=== PATIENT | female | born 1955 | race Caucasian/White ===

== ENCOUNTER 2017-07-08 18:35 | Emergency (ER) | payer BC, OTHER ==
[~2017-07-08] VITALS: Ht 157.5 cm; Wt 68.0 kg
[2017-07-08] MEDS ORDERED: SODIUM CHLORIDE 0.9% 1,000 ML IVB ONE (18:48)
[2017-07-08 19:30] LABS: Basophils # (auto) 0.1 uL; Basophils % (auto) 0.8 % (0.0-2.0); Eosinophils # (auto) 0.2 uL; Eosinophils % (auto) 1.9 % (0.0-7.0); Hematocrit 41.3 % (36.0-46.0); Hemoglobin 13.6 g/dL (12.2-16.2); Lymphocytes # (auto) 2.9 uL; Lymphocytes % (auto) 35.4 % (10.0-50.0); Mean Corpuscular Hemoglobin 29.8 pg (28.0-32.0); Mean Corpuscular Hgb Conc. 32.9 g/dL (32.0-36.0); Mean Corpuscular Volume 90.6 fL (80.0-100.0); Monocytes # (auto) 0.7 uL; Monocytes % (auto) 8.5 % (0.0-12.0); Neutrophils # (auto) 4.3 uL; Neutrophils % (auto) 53.4 % (37.0-80.0); Nucleated Red Blood Cells % 0.1 %; Platelet Count (auto) 266 10^3/uL (140-450); Red Blood Cells 4.56 10^6/uL (4.0-5.20); Red Cell Distribution Width 13.9 % (11.8-14.3); White Blood Cell 8.1 10^3/uL (4.4-10.8)
[2017-07-08 19:44] LABS: Acetaminophen 5.9 ug/mL (10-30); Salicylate 2.7 mg/dL (2.8-20.0)
[2017-07-08 19:45] LABS: Calcium 8.3 mg/dL (8.5-10.1); Potassium 3.1 mmol/L (3.5-5.1)
[2017-07-08 19:49] LABS: Albumin 3.9 g/dL (3.4-5.0); BUN/Creatinine Ratio 17.9; Magnesium 2.2 mg/dL (1.6-2.6)
[2017-07-08 19:51] LABS: Bilirubin, Total 0.6 mg/dL (0.2-1.0); Total Protein 7.5 g/dL (6.4-8.2)
[2017-07-08] MEDS ORDERED: SODIUM CHLORIDE 0.9% 1,000 ML IV ONE (20:45)
[2017-07-08 21:44] LABS: Acetaminophen 7.2 ug/mL (10-30); Salicylate 2.5 mg/dL (2.8-20.0)
[2017-07-08] MEDS ORDERED: POTASSIUM CHL 20 Meq TABLET PO ONE (23:00)
[2017-07-08] MEDS ORDERED: THIAMINE INJ 100 MG, MULTIPLE VITAMIN 10 ML, FOLIC ACID 1 MG, MAGNESIUM SULF SDV 50% 8 ... IV SCH ×5 (23:00)
[2017-07-08 23:03] LABS: Acetaminophen 2.8 ug/mL (10-30); Salicylate 2.6 mg/dL (2.8-20.0)
[2017-07-09] MEDS ORDERED: TRAZ100T2 PO (05:48)
[2017-07-09] MEDS ORDERED: IBUP800T24 PO (05:48)
[2017-07-09] MEDS ORDERED: BENA10TA9 PO (05:48)
[2017-07-09] MEDS ORDERED: OME20GT PO (05:48)
[2017-07-09] MEDS ORDERED: CHOL20007 PO (05:48)
[2017-07-09] MEDS ORDERED: ESCI20TA51 PO (05:48)
[2017-07-09] MEDS ORDERED: THIAMINE INJ 100 MG, MULTIPLE VITAMIN 10 ML, FOLIC ACID 1 MG, MAGNESIUM SULF SDV 50% 8 ... IV SCH ×5 (12:00)
[2017-07-09] MEDS: BENAZEPRIL HCL 10 MG TAB PO SCH (22:05)
[2017-07-10] MEDS ORDERED: NICOTINE 7MG/24HR TOPICAL PATCH TD ONE (08:45)
[2017-07-10] MEDS ORDERED: ESCITALOPRAM 20 MG PO SCH (10:00)
[2017-07-10] MEDS ORDERED: CHOLECALCIFEROL (VITD3) 1,000 UNIT TAB PO SCH (10:00)
[2017-07-10] MEDS: BENAZEPRIL HCL 10 MG TAB PO SCH (11:00)
[2017-07-10 11:54] VITALS: BP 152/78
== END 2017-07-10 10:52 | disposition short-term general hospital (02) ==
LOC: EDBD 18:35 → ER 18:39
DX: T40.602A Poisoning by unspecified narcotics, intentional self-harm, initial encounter (principal); F32.9 Major depressive disorder, single episode, unspecified; R41.82 Altered mental status, unspecified; T14.91XA Suicide attempt, initial encounter; Y92.89 Other specified places as the place of occurrence of the external cause; G92 Toxic encephalopathy; E87.6 Hypokalemia; F10.129 Alcohol abuse with intoxication, unspecified
CPT/HCPCS: 36415; 71045; 80053; 80320; 80329; 83735; 85025; 93005; 94761; 96361; 96365; 96366; 99285; J3411; J3475; J7030; 51702

== ENCOUNTER 2017-10-10 21:17 | Observation (INO) | payer BC ==
[~2017-10-10] VITALS: Ht 167.6 cm; Wt 77.1 kg
[~2017-10-10 21:17] MED LIST: BENA10TA9 PO; CHOL20007 PO; ESCI20TA51 PO; IBUP800T24 PO; OME20GT PO; TRAZ100T2 PO
[2017-10-10 21:43] LABS: Basophils # (auto) 0.1 uL; Basophils % (auto) 1.1 % (0.0-2.0); Eosinophils # (auto) 0.3 uL; Eosinophils % (auto) 3.4 % (0.0-7.0); Hematocrit 41.1 % (36.0-46.0); Hemoglobin 13.8 g/dL (12.2-16.2); Lymphocytes # (auto) 4.5 uL; Lymphocytes % (auto) 44.8 % (10.0-50.0); Mean Corpuscular Hemoglobin 29.6 pg (28.0-32.0); Mean Corpuscular Hgb Conc. 33.6 g/dL (32.0-36.0); Mean Corpuscular Volume 88.2 fL (80.0-100.0); Monocytes # (auto) 0.6 uL; Monocytes % (auto) 5.8 % (0.0-12.0); Neutrophils # (auto) 4.5 uL; Neutrophils % (auto) 44.9 % (37.0-80.0); Nucleated Red Blood Cells % 0.1 %; Platelet Count (auto) 254 10^3/uL (140-450); Red Blood Cells 4.66 10^6/uL (4.0-5.20); White Blood Cell 10.1 10^3/uL (4.4-10.8)
[2017-10-10] MEDS ORDERED: SODIUM CHLORIDE 0.9% 1,000 ML IV ONE (22:00)
[2017-10-10 22:21] LABS: Albumin 3.6 g/dL (3.4-5.0); BUN/Creatinine Ratio 20.9; Calcium 8.3 mg/dL (8.5-10.1)
[2017-10-10 22:23] LABS: Bilirubin, Total 0.3 mg/dL (0.2-1.0); Total Protein 7.2 g/dL (6.4-8.2)
[2017-10-10 22:26] LABS: Potassium 2.9 mmol/L (3.5-5.1); Salicylate 2.7 mg/dL (2.8-20.0)
[2017-10-10 22:28] LABS: Acetaminophen < 2.0 ug/mL (10-30)
[2017-10-10 22:41] LABS: Urine Bacteria NONE SEEN /hpf (None Seen); Urine Blood Negative /uL (Negative); Urine Specific Gravity 1.005 (1.001-1.035); Urine WBC 27 /hpf (0 - 5)
[2017-10-10 22:45] LABS: INR 0.96 (0.9-1.15); Partial Thromboplastin Time 28.5 sec (23.78-33.04); Prothrombin Time 10.3 sec (9.27-12.13)
[2017-10-10] MEDS ORDERED: POTASSIUM CHL 20 Meq TABLET PO ONE (22:45)
[2017-10-10 23:00] LABS: Amphetamine Screen, Urine NEGATIVE (NEGATIVE); Barbiturate Scree,Urine NEGATIVE (NEGATIVE); Benzodiazephine Screen, Urine POSITIVE (NEGATIVE); Cannabinoid Screen, Urine NEGATIVE (NEGATIVE); Cocaine Screen, Urine NEGATIVE (NEGATIVE); Opiate Scree,Urine NEGATIVE (NEGATIVE); Phencyclidine Screen, Urine NEGATIVE (NEGATIVE)
[2017-10-10] MEDS ORDERED: cefTRIAXone 1GM/10ml IVPUSH 10 ML IV ONE (23:15)
[2017-10-11 01:14] VITALS: BP 96/61
== END 2017-10-11 01:15 | disposition home or self-care (01) | DRG 880 ==
LOC: EDBD 21:17 → ER 21:24 → OVERFLOW 21:25 → ER 10-11 01:15
PROVIDERS: ADMIT Emergency Medicine; ATTEND Emergency Medicine
DX: F41.9 Anxiety disorder, unspecified (principal); F32.9 Major depressive disorder, single episode, unspecified; E87.6 Hypokalemia; F10.129 Alcohol abuse with intoxication, unspecified
CPT/HCPCS: 36415; 71045; 80053; 80307; 80320; 80329; 81001; 83735; 83880; 84484; 85025; 85610; 85730; 93005; 96361; 96374; 99285; G0378; J0696

== ENCOUNTER 2017-10-11 17:36 | Observation (INO) | payer BC ==
[~2017-10-11] VITALS: Ht 162.6 cm; Wt 77.1 kg
[2017-10-11 18:59] LABS: Basophils # (auto) 0.1 uL; Eosinophils # (auto) 0.4 uL; Eosinophils % (auto) 4.7 % (0.0-7.0); Hematocrit 40.8 % (36.0-46.0); Hemoglobin 13.9 g/dL (12.2-16.2); Lymphocytes # (auto) 3.3 uL; Lymphocytes % (auto) 38.5 % (10.0-50.0); Mean Corpuscular Hemoglobin 30.3 pg (28.0-32.0); Mean Corpuscular Hgb Conc. 34.1 g/dL (32.0-36.0); Mean Corpuscular Volume 88.8 fL (80.0-100.0); Monocytes # (auto) 0.6 uL; Monocytes % (auto) 6.9 % (0.0-12.0); Neutrophils # (auto) 4.2 uL; Neutrophils % (auto) 48.9 % (37.0-80.0); Nucleated Red Blood Cells % 0.1 %; Platelet Count (auto) 237 10^3/uL (140-450); Red Blood Cells 4.59 10^6/uL (4.0-5.20); Red Cell Distribution Width 13.1 % (11.8-14.3); White Blood Cell 8.7 10^3/uL (4.4-10.8)
[2017-10-11] MEDS ORDERED: diphenhdrAMINE HCL 50 MG/1 ML VL ONE (19:12)
[2017-10-11] MEDS ORDERED: HALOPERIDOL LACTATE 5 MG/ML INJ VIAL ONE (19:12)
[2017-10-11] MEDS ORDERED: LORazepam 2MG/ML-1ML VIAL ONE (19:12)
[2017-10-11 19:28] LABS: Alanine Aminotransferase 21 U/L (13-56); Albumin 4.1 g/dL (3.4-5.0); Alkaline Phosphatase 70 U/L (45-117); Anion Gap 9 (5-15); Aspartate Aminotransferase 15 U/L (15-37); BUN/Creatinine Ratio 13.5; Bilirubin, Total 0.6 mg/dL (0.2-1.0); Blood Urea Nitrogen 10 mg/dL (7-18); Calcium 8.5 mg/dL (8.5-10.1); Carbon Dioxide 25 mmol/L (21-32); Chloride 109 mmol/L (98-107); GFR African American 103 mL/min; GFR Non-African American 85 mL/min; Glucose 81 mg/dL (74-106); Potassium 3.7 mmol/L (3.5-5.1); Sodium 143 mmol/L (136-145); Total Protein 7.5 g/dL (6.4-8.2)
[2017-10-11] MEDS ORDERED: LORazepam 2MG/ML-1ML VIAL IV ONE (19:30)
[2017-10-11] MEDS ORDERED: diphenhdrAMINE HCL 50 MG/1 ML VL IV ONE (19:30)
[2017-10-11] MEDS ORDERED: HALOPERIDOL LACTATE 5 MG/ML INJ VIAL IM ONE (19:30)
[2017-10-11] MEDS ORDERED: SODIUM CHLORIDE 0.9% 1,000 ML IV ONE (20:00)
[2017-10-12 01:27] VITALS: BP 117/82
== END 2017-10-12 03:01 | disposition home or self-care (01) | DRG 896 ==
LOC: ER 17:36 → EDBD 17:36 → OVERFLOW 17:37 → ER 10-12 03:01
PROVIDERS: ADMIT Emergency Medicine; ATTEND Emergency Medicine
DX: F10.129 Alcohol abuse with intoxication, unspecified (principal); G92 Toxic encephalopathy; F41.9 Anxiety disorder, unspecified
CPT/HCPCS: 36415; 80053; 80320; 84484; 85025; 93005; 96361; 96372; 96374; 96375; 99285; G0378; J1200; J1630; J2060; A4565